=== PATIENT | female | born 1970 | race Caucasian/White ===

== ENCOUNTER → 2018-02-22 13:23 | Outpatient (CLI) | payer MEDICARE, MEDICAID, SELFPAY | PROVIDERS: PCP Family Medicine; Visit Provider Family Medicine ==

== ENCOUNTER → 2018-02-25 13:23 | Outpatient (CLI) | payer MEDICARE, MEDICAID, SELFPAY | PROVIDERS: PCP Family Medicine; Visit Provider Family Medicine | DX: Z48.817 Encounter for surgical aftercare following surgery on the skin and subcutaneous tissue (principal) | CPT/HCPCS: 99203; 99213 ==

== ENCOUNTER → 2018-03-23 13:19 | Outpatient (CLI) | payer MEDICARE, MEDICAID, SELFPAY | PROVIDERS: PCP Family Medicine; Visit Provider Family Medicine ==

== ENCOUNTER → 2022-03-18 09:21 | Outpatient (CLI) | payer OTHER, MEDICAID, SELFPAY ==
--- NOTE | 2022-03-18 | DI.ECHO.S_ITS ---
[facility] +---------+ : : [address] : [place] : : : : [id number] : : : : Phone: [phone]+ Echocardiogram Report + + :Name: DOT NDIAYE Study Date: 03/18/2022 Height: 62 in : :[facility] ReadingLocation: Weight: 170 lb : : Gender: Female BSA: 1.8 m2 : :: 1970 Age: 51 yrs BP: 124/78 mmHg: :Reason For Study: HEART DISEASE : :Ordering Physician: GIL RUSS Performed By: Gena Beckwith : :Referring: GIL RUSS : + + Interpretation Summary The study quality was technically difficult. Patient was scanned supine position in her wheelchair. The left ventricle is normal in size and wall thickness. The ejection fraction is estimated to be 65-70%. No significant diastolic dysfunction. The right ventricle is normal in size and function. No significant valvular pathology seen. Procedure: A two-dimensional transthoracic echocardiogram with color flow and Doppler was performed. The study quality was technically difficult. There is no prior echocardiogram noted for this patient. Patient was scanned supine position in her wheelchair. The patient was in sinus rhythm with heart rates between 64-73 bpm during the exam. Left Ventricle: The left ventricle is normal in size and wall thickness. There is no thrombus. The ejection fraction is estimated to be 65-70%. There are no focal wall motion abnormalities. MV E/A: 1.2 Med Peak E' [place]: 8.0 cm/sec E/E' med: 10.2. Right Ventricle: The right ventricle is normal in size and function. Atria: The left atrium is mildly dilated. Right atrial size is normal. There is no Doppler evidence for an interatrial shunt. Mitral Valve: There is mild mitral annular calcification. There is trace mitral regurgitation. Aortic Valve: The aortic valve is not well visualized. There is no aortic valve stenosis. No aortic regurgitation is present. Tricuspid Valve: The tricuspid valve is normal in structure and function. No tricuspid regurgitation. Pulmonary artery pressures cannot be estimated because of the lack of a measurable TR jet velocity. Pulmonic Valve: The pulmonic valve is not well visualized. Great Vessels: The aortic root is not well visualized. The ascending aorta could not be visualized. The inferior vena cava was not well visualized. Pericardium/ Pleura There is no pericardial effusion. There is no pleural effusion. MMode/2D Measurements & Calculations LVIDd: 3.9 cm LVOT diam: 2.0 cm LVIDs: 2.8 cm FS: 27.4 % IVSd: 0.89 cm LVPWd: 0.85 cm LV evans. diameter/BSA (cm/m^2): 2.2 LV sys. diameter/BSA (cm/m^2): 1.6 LA A2 area: 24.5 cm2 RA long axis: 4.9 cm LA A4 area: 19.5 cm2 RA area: 16.9 cm2 LA length (vol): 5.5 cm RA vol: 49.8 ml LA vol: 73.9 ml RA : 27.9 ml/m2 LA vol index: 41.4 ml/m2 RVD1 (basal): 2.9 cm RVD2 (mid): 2.5 cm TAPSE: 2.0 cm Doppler Measurements & Calculations Ao V2 max: 136.7 cm/sec LVOT Max [place]: 96.2 cm/sec Ao V2 mean: 95.6 cm/sec LV V1 max P.7 mmHg Ao max P.5 mmHg LV V1 VTI: 21.3 cm Ao mean P.2 mmHg DANIEL(I,D): 2.2 cm2 Ao V2 VTI: 30.6 cm DANIEL(V,D): 2.3 cm2 sev ratio: 0.70 DANIEL indexed to BSA (cm^2/m^2): 1.3 MV E max [place]: 81.7 cm/sec SV(LVOT): 68.2 ml MV A max [place]: 68.3 cm/sec MV E/A: 1.2 Med Peak E' [place]: 8.0 cm/sec E/E' med: 10.2 Lat Peak E' [place]: 8.5 cm/sec E/E' lat: 9.6 E/e' average: 9.9 MV dec time: 0.23 sec Reading Physician:04:24 PM
== END ==
PROVIDERS: PCP Family Medicine; Referring Provider Internal Medicine Cardiovascular Disease; Visit Provider Internal Medicine Cardiovascular Disease
DX: I51.9 Heart disease, unspecified (principal); I34.81 Nonrheumatic mitral (valve) annulus calcification
CPT/HCPCS: 93306